=== PATIENT | female | born 2005 ===

== ENCOUNTER 2025-10-19 11:10 | Emergency (ER) | payer SELFPAY ==
[~2025-10-19] VITALS: Ht 157.5 cm; Wt 61.0 kg
[2025-10-19 11:51] VITALS: TEMP 36.7; O2SAT 100
[2025-10-19 12:42] LABS: HEMATOCRIT. 40.8 % (36.0-48.0); HEMOGLOBIN. 13.3 g/dL (12.0-16.0); MEAN PLATELET VOLUME 8.3 fl (7.4-10.4); PLATELET 335 x1000/uL (130-400); RED BLOOD CELL COUNT 4.67 mill/uL (4.2-5.4); RED CELL DISTRIBUTION WIDTH 13.8 % (11.6-14.6)
[2025-10-19 12:47] LABS: HCG SCREEN NEGATIVE
[2025-10-19] MEDS: HALOPERIDOL LACTATE 5MG/ML VIAL IM ONE (13:02)
[2025-10-19] MEDS: DIPHENHYDRAMINE 50MG/ML VIAL IM STA (13:02)
[2025-10-19] MEDS: LORAZEPAM 2MG/ML UD SYRINGE IM SCH (13:02)
[2025-10-19 13:11] LABS: CREATININE 0.9 mg/dL (0.6-1.0); UREA NITROGEN BLOOD 8 mg/dL (9-23)
[2025-10-19 13:13] LABS: ASPARTATE AMINOTRANSFERASE 31 IU/L (<34); BILIRUBIN DIRECT 0.2 mg/dL (<=3.0)
[2025-10-19 13:14] LABS: BILIRUBIN TOTAL 0.7 mg/dL (0.1-1.0); PROTEIN TOTAL 7.7 g/dL (6.0-8.3)
[2025-10-19 14:23] LABS: BAND% 3.0 % (1.0-6.0); LYMPHOCYTES % MANUAL 8.0 % (20.0-60.0); MONOCYTES % MANUAL 6.0 % (2.0-8.0); NEUTROPHILS % MANUAL 83.0 % (45.0-75.0); PLATELET ESTIMATE NORMAL
[2025-10-19 14:38] VITALS: BP 121/58; PULSE 71; RESP 18; O2SAT 100
== END 2025-10-19 14:39 | disposition home or self-care (01) ==
LOC: ER 11:10
DX: R11.15 Cyclical vomiting syndrome unrelated to migraine (principal); R11.2 Nausea with vomiting, unspecified
CPT/HCPCS: 99284; 80076; 80048; 84703; 83690; 85025; 36415; 96372; J1200; J1630; J2060